=== PATIENT | female | born 1990 | race Caucasian/White ===

== ENCOUNTER 2021-01-18 20:29 | Emergency (ER) | payer MEDICAID ==
[~2021-01-18] VITALS: Ht 170.2 cm; Wt 77.1 kg
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
[2021-01-18] MEDS ORDERED: RALT400T PO (21:04)
[2021-01-18] MEDS ORDERED: EMTR1TAB6 PO (21:04)
--- NOTE | 2021-01-18 21:05 | NUR ---
Called [employer] Non-emergency bumper operator [phone], they are sending a unit out to evaluate the patient.
[2021-01-18 21:08] LABS: HEMATOCRIT 37.1 % (31.2-41.9); MEAN CORPUSCULAR VOLUME 87.7 fL (75.5-95.3); PLATELET COUNT (AUTO) 306 K/uL (179-408)
[2021-01-18 21:14] LABS: CARBON DIOXIDE 30 mmol/L (21-32); CHLORIDE 106 mmol/L (98-107); CREATININE 0.7 mg/dL (0.6-1.3); GLUCOSE 98 mg/dL (74-106); POTASSIUM 4.1 mmol/L (3.5-5.1); UREA NITROGEN, BLOOD 9 mg/dL (7-18)
[2021-01-18 21:20] LABS: ALANINE AMINOTRANSFERASE 57 U/L (14-59); ALKALINE PHOSPHATASE 60 U/L (50-136); ASPARTATE AMINOTRANSFERASE 28 U/L (15-37); BILIRUBIN,DIRECT 0.1 mg/dL (0.0-0.2); BILIRUBIN,TOTAL 0.4 mg/dL (0.2-1.0); MAGNESIUM 1.8 mg/dL (1.8-2.4); TOTAL PROTEIN, SERUM 6.7 g/dL (6.4-8.2)
[2021-01-18] MEDS ORDERED: LIDOCAINE HCL 1% 20 ML VIAL ONE (21:22)
[2021-01-18] MEDS ORDERED: RALTEGRAVIR POTASSIUM 400 MG TABLET PO ONE (21:22)
[2021-01-18] MEDS ORDERED: ONDANSETRON ODT 4 MG TAB.RAPDIS ONE (21:23)
[2021-01-18] MEDS ORDERED: METRONIDAZOLE 500 MG TABLET ONE (21:23)
[2021-01-18] MEDS ORDERED: AZITHROMYCIN 250 MG TABLET ONE (21:23)
[2021-01-18] MEDS ORDERED: CEFTRIAXONE 500 MG VIAL ONE (21:23)
[2021-01-18] MEDS ORDERED: PLAN B ONE-STEP 1.5 MG TABLET PO (21:23)
[2021-01-18] MEDS ORDERED: TENOFOVIR DISOPROXIL FUMARATE 300 MG TABLET ONE (21:24)
[2021-01-18] MEDS ORDERED: EMTRICITABINE 200 MG CAPSULE ONE (21:24)
[2021-01-18] MEDS: ONDANSETRON ODT 4 MG TAB.RAPDIS SL ONE (21:30)
[2021-01-18] MEDS: EMTRICITABINE 200 MG CAPSULE PO ONE (21:30)
[2021-01-18] MEDS: AZITHROMYCIN 250 MG TABLET PO ONE (21:30)
[2021-01-18] MEDS: RALTEGRAVIR POTASSIUM 400 MG TABLET PO ONE (21:30)
[2021-01-18] MEDS: METRONIDAZOLE 500 MG TABLET PO ONE (21:30)
[2021-01-18] MEDS: PLAN B ONE-STEP 1.5 MG TABLET PO (21:30)
[2021-01-18] MEDS: TENOFOVIR DISOPROXIL FUMARATE 300 MG TABLET PO ONE (21:30)
[2021-01-18] MEDS: CEFTRIAXONE 500 MG VIAL IM ONE (21:31)
--- NOTE | 2021-01-18 23:00 | NUR ---
[employer] at bedside to interview pt.
--- NOTE | 2021-01-18 23:59 | NUR ---
In interview w/ [facility], when asked if suicidal pt. said yes, stated she is currently suicidal. [employer] officer asked her if she had a plan and she said yes, to overdose on fentanyl. [employer] officers wrote a 5150 hold for suicidal ideation.
--- NOTE | 2021-01-19 | NUR ---
Suicide precautions in place. Will continue to monitor.
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
[2021-01-19 00:15] LABS: ETHANOL < 3 MG/DL (0-0)
[2021-01-19 00:16] LABS: ACETAMINOPHEN < 2.0 ug/mL (10-30)
[2021-01-19 00:37] LABS: *BILIRUBIN,URIN NEGATIVE (NEGATIVE); *CLARITY,URINE CLEAR (CLEAR); *COLOR,URINE YELLOW (YELLOW); *KETONES,URINE NEGATIVE (NEGATIVE); *UROBILINOGEN,URINE 0.2 E.U./dl (NORMAL); LEUKOCYTE ESTERASE ,URINE 1+ (NEGATIVE); NITRITE, URINE NEGATIVE (NEGATIVE); PH,URINE 5.5 (5.0-8.0); UGLUCOSE NEGATIVE (NEGATIVE)
--- NOTE | 2021-01-19 00:42 | NUR ---
[facility] placed pt. on hold for SI. Called Gia from PET team to evaluate pt for facility placement.
--- NOTE | 2021-01-19 00:44 | NUR ---
Gia VALDEZ is 1 hr.
[2021-01-19 00:45] LABS: *BLOOD, URINE TRACE (NEGATIVE)
[2021-01-19 00:46] LABS: BACTERIA,URINE NONE SEEN /HPF (NONE SEEN); RBC,URINE 0-3 /HPF (0-3); SQUAMOUS EPITHELIAL CELL,UR FEW /HPF (NONE SEEN)
[2021-01-19 00:49] LABS: *AMPHETAMINE, URINE POSITIVE (NEGATIVE); *CANNABINOID, URINE POSITIVE (NEGATIVE); *COCCAINE, URINE NEGATIVE (NEGATIVE); *OPIATE, URINE NEGATIVE (NEGATIVE); *PHENCYCLIDINE SCREEN,URINE NEGATIVE (NEGATIVE)
--- NOTE | 2021-01-19 02:00 | NUR ---
Gia faxed pts. information to [facility] and [facility]. Waiting to hear back on pt. placement.
[2021-01-19] MEDS: OLANZAPINE ZYDIS 5 MG TAB.RAPDIS PO STA (02:51)
--- NOTE | 2021-01-19 02:52 | NUR ---
Pt. sleeping. Vss. Will continue to monitor.
[2021-01-19] MEDS ORDERED: OLANZAPINE 5 MG TABLET ONE (02:56)
--- NOTE | 2021-01-19 05:00 | NUR ---
Gary from [facility] called and they will not accept pt. without PCR. Informed him that our PCRs take 48 hours. He said he will speak to his client service supervisor and get back to us about the pt.
--- NOTE | 2021-01-19 06:46 | NUR ---
Gia from PET team called. [facility] are working on placing the patient. Their # is [phone].
--- NOTE | 2021-01-19 09:12 | NUR ---
1:1 sitter observation maintained. Patient is still for adult psych placement for danger to self, on 515 psych HOLD since 01/18/2021 of 0015am. Addendum: 01/19/21 at 1706 by AICHA ...0 psych HOLD since 01/19/21 at 0015am
--- NOTE | 2021-01-19 10:04 | NUR ---
Patient is resting comfortably on gurney with eyes closed, laying on her left side. She is calm & cooperative when awake. Breakfast tray is@bedside.
--- NOTE | 2021-01-19 13:12 | NUR ---
Patient did not eat breakfast and slept mostly thru morning. 1:1 sitter maintained. Lunch tray@bedside.
--- NOTE | 2021-01-19 16:40 | NUR ---
Patient ate lunch with good appetite at around 1500. 1:1 sitter@bedside.
--- NOTE | 2021-01-19 18:17 | NUR ---
Dinner [email or web address]. 1:1 sitter@bedside.
--- NOTE | 2021-01-19 18:24 | NUR ---
Patient ate 100% of her lunch meal and half of her dinner tray, still for transfer to an adult non-geriatric psych unit at this time.
--- NOTE | 2021-01-19 19:16 | NUR ---
Hands off report given to KATINA Blanchard.1:1 sitter@bedside. Nursing sheet mill supervisor Melissa notified re: current sitter will leave at 1930 and needs her relief after 7:30pm. Melissa said that she will notify professional security officer for assistance.
--- NOTE | 2021-01-19 19:17 | NUR ---
RECIEVED REPORT FROM KATINA FIGUEROA. PT NOTED TO BE RESTING IN BED, EYES CLOSED. BREATHING EVEN AND UNLABORED, VSS. NOTED WITH 1:1 OBSERVATION AT BEDSIDE.
--- NOTE | 2021-01-19 20:28 | NUR ---
CALLED [facility], SPOKE WITH ROSIE, MADE AWARE THAT PT IS DISCHARGED FROM ER AND ON HER WAY TO THEIR FACILITY.
--- NOTE | 2021-01-19 20:30 | NUR ---
Patient Tranfers to outside Facility Physician: DR. SHEA Location: [facility], ROOM 144B ([facility] PT NOTED TO BE STABLE, VSS. DENIES ANY PAIN/DISCOMFORT PRIOR TO LEAVING. DENIED SI PRIOR TO LEAVING. ALL BELONGINGS WITH PT.
[2021-01-19 20:33] VITALS: BP 98/57
[2021-01-20 14:54] LABS: HEPATITIS B SURFACE AG Negative
== END 2021-01-19 20:34 ==
LOC: ER 20:31
DX: R45.851 Suicidal ideations (principal); T76.21XA Adult sexual abuse, suspected, initial encounter; Z82.49 Family history of ischemic heart disease and other diseases of the circulatory system; F23 Brief psychotic disorder; F15.20 Other stimulant dependence, uncomplicated; F11.20 Opioid dependence, uncomplicated; F12.20 Cannabis dependence, uncomplicated; Z20.822 Contact with and (suspected) exposure to COVID-19
CPT/HCPCS: 36415; 80048; 80076; 80299; 80307; 80320; 81001; 83735; 84702; 85025; 86592; 86803; 87086; 87340; 87426; 87806; 96372; 99285; J0696; J3490; U0003; A4663; G0480; J8499; Q0144; Q0162